=== PATIENT | male | born 1960 | race Two or more races ===

== ENCOUNTER → 2020-11-06 | Emergency (ER) | payer BC ==
[~2020-11-06] MED LIST: FLOMAX0.4 MG ORAL; IBUPROFEN600 MG ORAL; NORCO 5-325 TA1 EACH ORAL; SIMVASTATIN20 MG ORAL
--- NOTE | 2020-11-06 05:03 | Emergency Room Report ---
History of Present Illness General Chief Complaint: To Be Triaged Present Illness HPI Is a 60-year-old male who presents with chief complaint of food stuck in his throat. He actually called the ER about 30 minutes prior to arrival. He said was eating a very dry piece of chicken and felt it was stuck. He tried drinking hot water and keep regurgitating back up. He checked in here and drank some water and it passed through. Now he does not want to be seen. He had the same problem before and had endoscopy to remove that. Again patient symptom resolved he does not want to be seen anymore. Allergies: Coded Allergies: PENICILLINS (Verified Allergy, Severe, rash, 03/08/14) Medical Decision Making Diagnostic Impression: Primary Impression: Patient left without being seen Status: improved Disposition: LEFT W/OUT BEING SEEN Condition: Improved Referrals: NON PHYSICIAN (PCP) Hossein Ji MD Nov 06, 2020 05:03
== END | disposition home or self-care (01) ==
LOC: EMR 04:55
DX: T17.228A Food in pharynx causing other injury, initial encounter (principal); X58.XXXA Exposure to other specified factors, initial encounter; Y93.9 Activity, unspecified; Y92.9 Unspecified place or not applicable; Z53.21 Procedure and treatment not carried out due to patient leaving prior to being seen by health care provider